=== PATIENT | female | born 1950 | race Caucasian/White ===

== ENCOUNTER 2020-08-31 22:15 | Inpatient (IN) ==
[2020-08-31] MEDS ORDERED: ONDANSETRON 4 MG/2 ML VIAL IV STA (23:20)
[2020-08-31] MEDS ORDERED: FUROSEMIDE 40 MG/4 ML VIAL IV STA (23:20)
[2020-08-31] MEDS ORDERED: methylPREDNISolone SOD SUC 125 MG/2 ML VIAL IV STA (23:20)
[2020-08-31 23:28] LABS: Basophils % 0.2 % (0.0-0.8); Hematocrit 37.6 VOL% (35.7-47.0); Hemoglobin 11.5 GM/DL (12.0-16.0); Immature Granulocytes % 0.6 %; Immature Granulocytes Absolute 0.06 #; Lymphocytes % 9.8 % (21.3-54.2); Mean Corpuscular HGB Conc 30.6 GM/DL (32-36); Mean Corpuscular Volume 95.9 FL (87-102); Mean Platelet Volume 10.3 FL (9.6-12.0); Monocytes % 8.5 % (1.7-12.7); Neutrophils % 80.9 % (38.7-73.9); Platelet Count 251 T/CUMM (130-400); Red Blood Count 3.92 MC/CUMM (3.8-5.5); Red Cell Distribution Width 15.9 % (9.3-17.3); White Blood Count 10.3 T/CUMM (4-12)
[2020-08-31] MEDS ORDERED: ALBUTEROL NEB SOLN 5 MG/ML 20 ML/BOTTLE CONT NEB SCH (23:30)
[2020-08-31 23:37] LABS: INR 1.1
[2020-08-31 23:47] LABS: Albumin 3.7 G/DL (3.4-5.0); Bilirubin,Total 0.5 MG/DL (0.2-1.0); Calcium 9.9 MG/DL (8.5-10.1); Osmolality,Calculated 312.7 MOS/KG (273-304); Potassium 4.2 MMOL/L (3.5-5.1); Total Protein 7.2 G/DL (6.4-8.2)
[2020-09-01] MEDS ORDERED: guaiFENesin/DM ER 600-30 MG TABLET PO PRN (01:23)
[2020-09-01] MEDS ORDERED: DEXTROSE 50% 25 GM/50 ML VIAL IV PRN ×2 (01:23→03:39)
[2020-09-01] MEDS ORDERED: MORPHINE 4 MG/1 ML VIAL IV PRN (01:23)
[2020-09-01] MEDS ORDERED: hydrALAZINE 20 MG/1 ML VIAL IV PRN (01:23)
[2020-09-01] MEDS ORDERED: NICOTINE 21 MG/24 HR PATCH TRANSDERM PRN (01:23)
[2020-09-01] MEDS ORDERED: CALCIUM CARBONATE CHEW 500 MG TABLET PO PRN (01:23)
[2020-09-01] MEDS ORDERED: ACETAMINOPHEN 325 MG TABLET PO PRN (01:23)
[2020-09-01] MEDS ORDERED: GLUCAGON 1 MG VIAL IM PRN (01:23)
[2020-09-01] MEDS ORDERED: ONDANSETRON 4 MG/2 ML VIAL IV PRN (01:23)
[2020-09-01 04:11] LABS: Risk Ratio 5.78; VLDL Cholesterol 41.8 MG/DL
[2020-09-01] MEDS: ALBUTEROL/IPRATROPIUM 3 ML NEB RESP TX SCH ×3 (07:18→19:25)
[2020-09-01] MEDS: methylPREDNISolone SOD SUC 40 MG/1 ML VIAL IV SCH ×2 (09:05→22:00)
[2020-09-01] MEDS: INSULIN REGULAR 100 UNIT/ML SUBCUT SCH ×4 (09:11→22:01)
[2020-09-01] MEDS ORDERED: SACUBITRIL/VALSARTAN 49-51 MG TABLET PO SCH (10:00)
[2020-09-01] MEDS: ASPIRIN EC 81 MG TABLET PO SCH (11:11)
[2020-09-01] MEDS: NEBIVOLOL 5 MG TABLET PO SCH (11:11)
[2020-09-01] MEDS ORDERED: FUROSEMIDE 40 MG/4 ML VIAL IV ONE (11:52)
[2020-09-01] MEDS: BENZONATATE 100 MG CAPSULE PO PRN (12:56)
[2020-09-01 14:24] LABS: Bacteria,Urine Occasional /HPF (Few); Bilirubin,Urine Negative (Negative); Blood, Urine Moderate mg/dL (Negative); Glucose,Urine (UA) Negative (Negative); Hyaline Casts,Urine 14 /LPF (0-3); Ketones,Urine Negative (Negative); Mucus,Urine Occasional /LPF (Occasional); Nitrite,Urine Negative (Negative); Protein,Urine Negative; RBC,Urine 30 /HPF (0-4); Squamous Epithelial Cell,Urine Occasional /HPF (0-10); Urine Appearance Slightly Hazy (Clear); Urine Color Straw (Yellow); Urine Specific Gravity 1.009 (1.001-1.035); Urine Urobilinogen < 2.0 EU/DL (0.2-1.0)
[2020-09-01] MEDS ORDERED: ATORVASTATIN 20 MG TABLET PO SCH (21:00)
[2020-09-01] MEDS: clonazePAM 0.5 MG TABLET PO SCH (21:57)
[2020-09-01] MEDS: PANTOPRAZOLE 40 MG TABLET PO SCH (21:57)
[2020-09-01] MEDS: IVABRADINE HCL 5 MG TABLET PO SCH (21:58)
[2020-09-01] MEDS: ATORVASTATIN 40 MG TABLET PO SCH (21:58)
[2020-09-02] MEDS: ALBUTEROL/IPRATROPIUM 3 ML NEB RESP TX SCH ×4 (03:37→19:53)
[2020-09-02 06:08] LABS: Basophils % 0.1 % (0.0-0.8); Hematocrit 35.8 VOL% (35.7-47.0); Hemoglobin 10.9 GM/DL (12.0-16.0); Immature Granulocytes % 1.2 %; Immature Granulocytes Absolute 0.14 #; Lymphocytes # 0.9 10*3/uL (1.4-4.0); Lymphocytes % 7.4 % (21.3-54.2); Mean Corpuscular HGB Conc 30.4 GM/DL (32-36); Mean Corpuscular Volume 96.5 FL (87-102); Monocytes % 4.7 % (1.7-12.7); Neutrophils % 86.6 % (38.7-73.9); Platelet Count 221 T/CUMM (130-400); Red Blood Count 3.71 MC/CUMM (3.8-5.5); Red Cell Distribution Width 15.9 % (9.3-17.3); White Blood Count 11.6 T/CUMM (4-12)
[2020-09-02 06:19] LABS: Calcium 9.7 MG/DL (8.5-10.1); Potassium 4.4 MMOL/L (3.5-5.1)
[2020-09-02] MEDS: INSULIN REGULAR 100 UNIT/ML SUBCUT SCH ×4 (07:54→22:23)
[2020-09-02] MEDS: CLOPIDOGREL 75 MG TABLET PO SCH (08:52)
[2020-09-02] MEDS: methylPREDNISolone SOD SUC 40 MG/1 ML VIAL IV SCH ×2 (08:52→22:14)
[2020-09-02] MEDS: clonazePAM 0.5 MG TABLET PO SCH ×2 (08:52→22:13)
[2020-09-02] MEDS: OMEGA 3 ACID ETHYL ESTERS 1 GM CAPSULE PO SCH (08:53)
[2020-09-02] MEDS: NEBIVOLOL 5 MG TABLET PO SCH (08:54)
[2020-09-02] MEDS: IVABRADINE HCL 5 MG TABLET PO SCH ×2 (08:54→22:13)
[2020-09-02] MEDS: PANTOPRAZOLE 40 MG TABLET PO SCH ×2 (08:54→22:13)
[2020-09-02] MEDS: allopurinoL 100 MG TABLET PO SCH (08:54)
[2020-09-02] MEDS: ASPIRIN EC 81 MG TABLET PO SCH (08:54)
[2020-09-02] MEDS ORDERED: FUROSEMIDE 40 MG/4 ML VIAL IV ONE (08:56)
[2020-09-02] MEDS: BENZONATATE 100 MG CAPSULE PO PRN (22:13)
[2020-09-02] MEDS: ATORVASTATIN 40 MG TABLET PO SCH (22:14)
[2020-09-03] MEDS: ALBUTEROL/IPRATROPIUM 3 ML NEB RESP TX SCH ×4 (01:55→20:00)
[2020-09-03 04:10] LABS: Basophils % 0.1 % (0.0-0.8); Hematocrit 34.8 VOL% (35.7-47.0); Immature Granulocytes % 1.7 %; Immature Granulocytes Absolute 0.15 #; Lymphocytes # 0.6 10*3/uL (1.4-4.0); Lymphocytes % 6.8 % (21.3-54.2); Mean Corpuscular HGB Conc 31.6 GM/DL (32-36); Mean Corpuscular Volume 96.1 FL (87-102); Mean Platelet Volume 10.7 FL (9.6-12.0); Neutrophils % 88.4 % (38.7-73.9); Platelet Count 199 T/CUMM (130-400); Red Blood Count 3.62 MC/CUMM (3.8-5.5); Red Cell Distribution Width 15.6 % (9.3-17.3); White Blood Count 8.9 T/CUMM (4-12)
[2020-09-03 04:32] LABS: Calcium 9.5 MG/DL (8.5-10.1); Potassium 4.7 MMOL/L (3.5-5.1)
[2020-09-03] MEDS: clonazePAM 0.5 MG TABLET PO SCH ×2 (11:14→21:28)
[2020-09-03] MEDS: PANTOPRAZOLE 40 MG TABLET PO SCH ×2 (11:15→21:29)
[2020-09-03] MEDS: NEBIVOLOL 5 MG TABLET PO SCH (11:15)
[2020-09-03] MEDS: FUROSEMIDE 40 MG TABLET PO SCH ×2 (11:15→17:01)
[2020-09-03] MEDS: OMEGA 3 ACID ETHYL ESTERS 1 GM CAPSULE PO SCH (11:15)
[2020-09-03] MEDS: CLOPIDOGREL 75 MG TABLET PO SCH (11:16)
[2020-09-03] MEDS: allopurinoL 100 MG TABLET PO SCH (11:16)
[2020-09-03] MEDS: ASPIRIN EC 81 MG TABLET PO SCH (11:17)
[2020-09-03] MEDS: methylPREDNISolone SOD SUC 40 MG/1 ML VIAL IV SCH ×2 (11:22→21:29)
[2020-09-03] MEDS: IVABRADINE HCL 5 MG TABLET PO SCH ×2 (11:23→21:30)
[2020-09-03] MEDS: INSULIN REGULAR 100 UNIT/ML SUBCUT SCH ×4 (11:56→21:29)
[2020-09-03] MEDS: ATORVASTATIN 40 MG TABLET PO SCH (21:29)
[2020-09-04] MEDS: ALBUTEROL/IPRATROPIUM 3 ML NEB RESP TX SCH ×4 (02:10→20:40)
[2020-09-04] MEDS: INSULIN REGULAR 100 UNIT/ML SUBCUT SCH ×4 (10:15→21:57)
[2020-09-04] MEDS: FUROSEMIDE 40 MG TABLET PO SCH ×2 (11:16→16:23)
[2020-09-04] MEDS: ASPIRIN EC 81 MG TABLET PO SCH (11:17)
[2020-09-04] MEDS: NEBIVOLOL 5 MG TABLET PO SCH (11:18)
[2020-09-04] MEDS: OMEGA 3 ACID ETHYL ESTERS 1 GM CAPSULE PO SCH (11:18)
[2020-09-04] MEDS: IVABRADINE HCL 5 MG TABLET PO SCH ×2 (11:19→21:57)
[2020-09-04] MEDS: clonazePAM 0.5 MG TABLET PO SCH ×2 (11:19→21:57)
[2020-09-04] MEDS: PANTOPRAZOLE 40 MG TABLET PO SCH ×2 (11:19→21:57)
[2020-09-04] MEDS: CLOPIDOGREL 75 MG TABLET PO SCH (11:23)
[2020-09-04] MEDS: allopurinoL 100 MG TABLET PO SCH (11:23)
[2020-09-04] MEDS: methylPREDNISolone SOD SUC 40 MG/1 ML VIAL IV SCH (11:28)
[2020-09-04] MEDS: ATORVASTATIN 40 MG TABLET PO SCH (21:57)
[2020-09-05] MEDS: ALBUTEROL/IPRATROPIUM 3 ML NEB RESP TX SCH ×4 (02:02→19:11)
[2020-09-05] MEDS: INSULIN REGULAR 100 UNIT/ML SUBCUT SCH ×3 (08:35→16:23)
[2020-09-05] MEDS: OMEGA 3 ACID ETHYL ESTERS 1 GM CAPSULE PO SCH (10:01)
[2020-09-05] MEDS: ASPIRIN EC 81 MG TABLET PO SCH (10:01)
[2020-09-05] MEDS: clonazePAM 0.5 MG TABLET PO SCH (10:01)
[2020-09-05] MEDS: PANTOPRAZOLE 40 MG TABLET PO SCH ×2 (10:02→21:14)
[2020-09-05] MEDS: CLOPIDOGREL 75 MG TABLET PO SCH (10:02)
[2020-09-05] MEDS: predniSONE 20 MG TABLET PO SCH (10:02)
[2020-09-05] MEDS: NEBIVOLOL 5 MG TABLET PO SCH (10:02)
[2020-09-05] MEDS: allopurinoL 100 MG TABLET PO SCH (10:02)
[2020-09-05] MEDS: FUROSEMIDE 40 MG TABLET PO SCH ×2 (10:03→16:33)
[2020-09-05] MEDS: IVABRADINE HCL 5 MG TABLET PO SCH ×2 (10:05→21:14)
[2020-09-05 12:04] LABS: Allen Test Negative
[2020-09-05 12:08] LABS: ABG Base Excess 7.2 MMOL/L (-2.5-2.5); ABG HCO3 34.3 MMOL/L (20-26); ABG Oxygen Saturation 97.4 % (95-100); ABG PCO2 61.2 MM HG (35-48); ABG PH 7.366 (7.35-7.45); ABG PO2 105.9 MM HG (80-95); ABG TCO2 36.1 MMOL/L (23-27)
[2020-09-05] MEDS: ATORVASTATIN 40 MG TABLET PO SCH (21:14)
[2020-09-06] MEDS: ALBUTEROL/IPRATROPIUM 3 ML NEB RESP TX SCH ×4 (01:00→18:58)
[2020-09-06] MEDS: INSULIN REGULAR 100 UNIT/ML SUBCUT SCH ×5 (02:41→21:34)
[2020-09-06 04:51] LABS: Basophils % 0.3 % (0.0-0.8); Eosinophils # 0.1 10*3/uL (0.0-0.87); Eosinophils % 0.8 % (0.00-10.9); Hematocrit 38.5 VOL% (35.7-47.0); Immature Granulocytes % 1.9 %; Immature Granulocytes Absolute 0.22 #; Lymphocytes # 1.9 10*3/uL (1.4-4.0); Lymphocytes % 16.4 % (21.3-54.2); Mean Corpuscular HGB Conc 31.2 GM/DL (32-36); Mean Corpuscular Volume 95.3 FL (87-102); Mean Platelet Volume 10.9 FL (9.6-12.0); Monocytes % 8.7 % (1.7-12.7); Neutrophils % 71.9 % (38.7-73.9); Platelet Count 210 T/CUMM (130-400); Red Blood Count 4.04 MC/CUMM (3.8-5.5); Red Cell Distribution Width 15.4 % (9.3-17.3); White Blood Count 11.8 T/CUMM (4-12)
[2020-09-06 05:07] LABS: Calcium 9.5 MG/DL (8.5-10.1); Osmolality,Calculated 324.5 MOS/KG (273-304); Potassium 3.8 MMOL/L (3.5-5.1)
[2020-09-06] MEDS: NEBIVOLOL 5 MG TABLET PO SCH (09:44)
[2020-09-06] MEDS: predniSONE 20 MG TABLET PO SCH (09:44)
[2020-09-06] MEDS: FUROSEMIDE 40 MG TABLET PO SCH ×2 (09:44→18:03)
[2020-09-06] MEDS: allopurinoL 100 MG TABLET PO SCH (09:44)
[2020-09-06] MEDS: CLOPIDOGREL 75 MG TABLET PO SCH (09:44)
[2020-09-06] MEDS: IVABRADINE HCL 5 MG TABLET PO SCH ×2 (09:45→21:34)
[2020-09-06] MEDS: OMEGA 3 ACID ETHYL ESTERS 1 GM CAPSULE PO SCH (09:45)
[2020-09-06] MEDS: ASPIRIN EC 81 MG TABLET PO SCH (09:45)
[2020-09-06] MEDS: PANTOPRAZOLE 40 MG TABLET PO SCH ×2 (09:45→21:35)
[2020-09-06] MEDS: ATORVASTATIN 40 MG TABLET PO SCH (21:34)
[2020-09-06] MEDS: BENZONATATE 100 MG CAPSULE PO PRN (21:35)
[2020-09-07] MEDS: ALBUTEROL/IPRATROPIUM 3 ML NEB RESP TX SCH ×4 (00:35→19:19)
[2020-09-07 05:17] LABS: Basophils % 0.3 % (0.0-0.8); Eosinophils # 0.1 10*3/uL (0.0-0.87); Eosinophils % 0.7 % (0.00-10.9); Hematocrit 39.5 VOL% (35.7-47.0); Hemoglobin 12.5 GM/DL (12.0-16.0); Immature Granulocytes % 1.4 %; Immature Granulocytes Absolute 0.15 #; Lymphocytes # 1.8 10*3/uL (1.4-4.0); Lymphocytes % 16.7 % (21.3-54.2); Mean Corpuscular HGB Conc 31.6 GM/DL (32-36); Mean Corpuscular Volume 95.2 FL (87-102); Mean Platelet Volume 10.3 FL (9.6-12.0); Monocytes % 10.8 % (1.7-12.7); Neutrophils % 70.1 % (38.7-73.9); Platelet Count 210 T/CUMM (130-400); Red Blood Count 4.15 MC/CUMM (3.8-5.5); Red Cell Distribution Width 15.6 % (9.3-17.3); White Blood Count 10.7 T/CUMM (4-12)
[2020-09-07 05:32] LABS: Calcium 9.7 MG/DL (8.5-10.1); Osmolality,Calculated 318.7 MOS/KG (273-304); Potassium 3.5 MMOL/L (3.5-5.1)
[2020-09-07] MEDS: NEBIVOLOL 5 MG TABLET PO SCH (09:25)
[2020-09-07] MEDS: IVABRADINE HCL 5 MG TABLET PO SCH ×2 (09:25→20:29)
[2020-09-07] MEDS: BENZONATATE 100 MG CAPSULE PO PRN (09:25)
[2020-09-07] MEDS: PANTOPRAZOLE 40 MG TABLET PO SCH ×2 (09:25→20:29)
[2020-09-07] MEDS: OMEGA 3 ACID ETHYL ESTERS 1 GM CAPSULE PO SCH (09:25)
[2020-09-07] MEDS: allopurinoL 100 MG TABLET PO SCH (09:25)
[2020-09-07] MEDS: FUROSEMIDE 40 MG TABLET PO SCH ×2 (09:25→15:53)
[2020-09-07] MEDS: predniSONE 20 MG TABLET PO SCH (09:26)
[2020-09-07] MEDS: CLOPIDOGREL 75 MG TABLET PO SCH (09:26)
[2020-09-07] MEDS: INSULIN REGULAR 100 UNIT/ML SUBCUT SCH ×5 (09:26→20:29)
[2020-09-07] MEDS: ASPIRIN EC 81 MG TABLET PO SCH (09:26)
[2020-09-07] MEDS: ATORVASTATIN 40 MG TABLET PO SCH (20:29)
[2020-09-07] MEDS ORDERED: INSULIN GLARGINE 100 UNIT/ML SUBCUT SCH (21:00)
[2020-09-08] MEDS: ALBUTEROL/IPRATROPIUM 3 ML NEB RESP TX SCH ×2 (00:31→08:05)
[2020-09-08 05:21] LABS: Calcium 9.9 MG/DL (8.5-10.1); Osmolality,Calculated 303.3 MOS/KG (273-304); Potassium 3.9 MMOL/L (3.5-5.1)
[2020-09-08] MEDS: INSULIN REGULAR 100 UNIT/ML SUBCUT SCH ×2 (09:42→12:58)
[2020-09-08] MEDS: FUROSEMIDE 40 MG TABLET PO SCH (09:45)
[2020-09-08] MEDS: OMEGA 3 ACID ETHYL ESTERS 1 GM CAPSULE PO SCH (09:45)
[2020-09-08] MEDS: PANTOPRAZOLE 40 MG TABLET PO SCH (09:45)
[2020-09-08] MEDS: predniSONE 20 MG TABLET PO SCH (09:45)
[2020-09-08] MEDS: CLOPIDOGREL 75 MG TABLET PO SCH (09:45)
[2020-09-08] MEDS: allopurinoL 100 MG TABLET PO SCH (09:45)
[2020-09-08] MEDS: NEBIVOLOL 5 MG TABLET PO SCH (09:45)
[2020-09-08] MEDS: ASPIRIN EC 81 MG TABLET PO SCH (09:45)
[2020-09-08] MEDS: IVABRADINE HCL 5 MG TABLET PO SCH (09:47)
[2020-09-08 13:00] VITALS: BP 126/59
== END 2020-09-08 13:02 | disposition home health service (06) | DRG 190 ==
LOC: N.ED 22:15 → N.EDINP 22:15 → N.TELEN 09-01 01:49 → SUATTDRO 09-03 08:55
PROVIDERS: ADMIT Internal Medicine Geriatric Medicine; ATTEND Internal Medicine

== ENCOUNTER 2020-11-12 02:27 | Inpatient (IN) ==
[2020-11-12 02:46] LABS: Basophils # 0.1 10*3/uL (0.0-0.2); Eosinophils # 0.4 10*3/uL (0.0-0.87); Eosinophils % 4.5 % (0.00-10.9); Hematocrit 29.6 VOL% (35.7-47.0); Hemoglobin 9.1 GM/DL (12.0-16.0); Immature Granulocytes % 0.4 %; Immature Granulocytes Absolute 0.03 #; Lymphocytes # 1.2 10*3/uL (1.4-4.0); Lymphocytes % 14.7 % (21.3-54.2); Mean Corpuscular HGB Conc 30.7 GM/DL (32-36); Mean Corpuscular Volume 91.9 FL (87-102); Mean Platelet Volume 10.7 FL (9.6-12.0); Monocytes % 7.6 % (1.7-12.7); Neutrophils % 71.8 % (38.7-73.9); Platelet Count 212 T/CUMM (130-400); Red Blood Count 3.22 MC/CUMM (3.8-5.5); Red Cell Distribution Width 15.3 % (9.3-17.3); White Blood Count 8.4 T/CUMM (4-12)
[2020-11-12] MEDS ORDERED: methylPREDNISolone SOD SUC 125 MG/2 ML VIAL IV STA (03:05)
[2020-11-12] MEDS ORDERED: ONDANSETRON 4 MG/2 ML VIAL IV STA (03:05)
[2020-11-12 03:11] LABS: Albumin 3.3 G/DL (3.4-5.0); Bilirubin,Total 1.1 MG/DL (0.20-1.00); Calcium 9.7 MG/DL (8.5-10.1); Osmolality,Calculated 302.2 MOS/KG (273-304); Potassium 3.9 MMOL/L (3.5-5.1); Total Protein 6.9 G/DL (6.4-8.2)
[2020-11-12 03:23] LABS: INR 1.1; PT Patient Result 12.6 SECS (10.5-12.0)
[2020-11-12] MEDS ORDERED: ALBUTEROL NEB SOLN 5 MG/ML 20 ML/BOTTLE CONT NEB SCH (03:30)
[2020-11-12] MEDS ORDERED: SODIUM CHLORIDE 0.9% 500 ML IV STA (04:02)
[2020-11-12] MEDS ORDERED: MORPHINE 2 MG/1 ML SYRINGE IV PRN (04:40)
[2020-11-12] MEDS ORDERED: DEXTROSE 50% 25 GM/50 ML VIAL IV PRN ×2 (04:40)
[2020-11-12] MEDS ORDERED: GLUCAGON 1 MG VIAL IM PRN (04:40)
[2020-11-12 05:17] LABS: Bacteria,Urine Occasional /HPF (Few); Bilirubin,Urine Negative (Negative); Blood, Urine Negative (Negative); Glucose,Urine (UA) Negative (Negative); Hyaline Casts,Urine 1 /LPF (0-3); Ketones,Urine Negative (Negative); Mucus,Urine Occasional /LPF (Occasional); Nitrite,Urine Negative (Negative); Protein,Urine Negative; RBC,Urine 1 /HPF (0-4); Squamous Epithelial Cell,Urine Occasional /HPF (0-10); Urine Appearance CLEAR (Clear); Urine Color Yellow (Yellow); Urine Urobilinogen < 2.0 EU/DL (0.2-1.0)
[2020-11-12 08:20] LABS: Folate 11.29 NG/ML (5.38-24.0)
[2020-11-12 08:53] LABS: % Iron Saturation 9.6 % (18-50); Ferritin 132.8 ng/mL (8-252)
[2020-11-12] MEDS ORDERED: SACUBITRIL/VALSARTAN 49-51 MG TABLET PO SCH (09:00)
[2020-11-12] MEDS: CLOPIDOGREL 75 MG TABLET PO SCH (09:37)
[2020-11-12] MEDS: ENOXAPARIN 30 MG/0.3 ML SYRINGE SUBCUT SCH (09:38)
[2020-11-12] MEDS: INSULIN LISPRO 100 UNIT/ML SUBCUT SCH ×4 (09:38→22:21)
[2020-11-12] MEDS: methylPREDNISolone SOD SUC 40 MG/1 ML VIAL IV SCH ×2 (09:38→17:44)
[2020-11-12] MEDS: ZINC OXIDE PASTE 113 GM TUBE TOP SCH ×2 (14:50→22:21)
[2020-11-12] MEDS: COLLAGENASE OINT 30 GM TUBE TOP SCH (14:50)
[2020-11-12] MEDS: SODIUM CHLORIDE 0.9% 1,000 ML IV SCH (17:49)
[2020-11-12] MEDS: INSULIN GLARGINE 100 UNIT/ML SUBCUT SCH (22:20)
[2020-11-12] MEDS: ATORVASTATIN 40 MG TABLET PO SCH (22:20)
[2020-11-13] MEDS: methylPREDNISolone SOD SUC 40 MG/1 ML VIAL IV SCH ×3 (00:02→16:59)
[2020-11-13 06:30] LABS: Basophils % 0.1 % (0.0-0.8); Hematocrit 28.7 VOL% (35.7-47.0); Hemoglobin 9.4 GM/DL (12.0-16.0); Immature Granulocytes % 0.6 %; Immature Granulocytes Absolute 0.09 #; Lymphocytes # 0.4 10*3/uL (1.4-4.0); Lymphocytes % 2.9 % (21.3-54.2); Mean Corpuscular HGB Conc 32.8 GM/DL (32-36); Mean Corpuscular Volume 89.4 FL (87-102); Mean Platelet Volume 10.9 FL (9.6-12.0); Monocytes % 1.6 % (1.7-12.7); Neutrophils % 94.8 % (38.7-73.9); Platelet Count 230 T/CUMM (130-400); Red Blood Count 3.21 MC/CUMM (3.8-5.5); Red Cell Distribution Width 15.1 % (9.3-17.3); White Blood Count 14.3 T/CUMM (4-12)
[2020-11-13 06:52] LABS: Calcium 9.9 MG/DL (8.5-10.1); Osmolality,Calculated 298.6 MOS/KG (273-304); Risk Ratio 2.66; Thyroid Stimulating Hormone 0.297 uIU/ml (0.358-3.74); VLDL Cholesterol 15.4 MG/DL
[2020-11-13 07:01] LABS: Band Neutrophils 1 % (0-10); Lymphocytes 2 % (20-55); Platelet Estimate Normal; Segmented Neutrophils 96 % (50-85); Total Cells Counted 100
[2020-11-13] MEDS: CLOPIDOGREL 75 MG TABLET PO SCH (09:14)
[2020-11-13] MEDS: INSULIN LISPRO 100 UNIT/ML SUBCUT SCH ×4 (09:14→22:59)
[2020-11-13] MEDS: ENOXAPARIN 30 MG/0.3 ML SYRINGE SUBCUT SCH (09:14)
[2020-11-13] MEDS: CLINDAMYCIN 300 MG CAPSULE PO SCH ×4 (09:14→22:58)
[2020-11-13] MEDS: COLLAGENASE OINT 30 GM TUBE TOP SCH (09:14)
[2020-11-13] MEDS: ZINC OXIDE PASTE 113 GM TUBE TOP SCH ×2 (09:14→22:59)
[2020-11-13] MEDS: SODIUM CHLORIDE 0.9% 1,000 ML IV SCH (10:32)
[2020-11-13] MEDS ORDERED: AMOXICILLIN/CLAV 500 MG TABLET PO SCH (13:30)
[2020-11-13] MEDS: ONDANSETRON 4 MG/2 ML VIAL IV PRN ×2 (15:38→22:59)
[2020-11-13] MEDS: ACETAMINOPHEN 325 MG TABLET PO PRN (17:03)
[2020-11-13] MEDS: ALBUTEROL/IPRATROPIUM 3 ML NEB RESP TX PRN (19:55)
[2020-11-13] MEDS: ATORVASTATIN 40 MG TABLET PO SCH (22:58)
[2020-11-13] MEDS: INSULIN GLARGINE 100 UNIT/ML SUBCUT SCH (22:59)
[2020-11-14] MEDS: methylPREDNISolone SOD SUC 40 MG/1 ML VIAL IV SCH ×3 (01:21→22:18)
[2020-11-14 05:04] LABS: Basophils % 0.2 % (0.0-0.8); Hematocrit 30.7 VOL% (35.7-47.0); Hemoglobin 9.8 GM/DL (12.0-16.0); Immature Granulocytes % 0.7 %; Immature Granulocytes Absolute 0.09 #; Lymphocytes # 0.4 10*3/uL (1.4-4.0); Lymphocytes % 3.3 % (21.3-54.2); Mean Corpuscular HGB Conc 31.9 GM/DL (32-36); Mean Platelet Volume 11.2 FL (9.6-12.0); Neutrophils % 93.8 % (38.7-73.9); Platelet Count 258 T/CUMM (130-400); Red Blood Count 3.41 MC/CUMM (3.8-5.5); Red Cell Distribution Width 15.1 % (9.3-17.3); White Blood Count 13.3 T/CUMM (4-12)
[2020-11-14 05:30] LABS: Calcium 9.8 MG/DL (8.5-10.1); Osmolality,Calculated 302.8 MOS/KG (273-304); Potassium 4.2 MMOL/L (3.5-5.1)
[2020-11-14 05:41] LABS: Hypochromasia Slight; Platelet Estimate Normal; Segmented Neutrophils 98 % (50-85); Total Cells Counted 100
[2020-11-14] MEDS: CLINDAMYCIN 300 MG CAPSULE PO SCH ×3 (07:21→22:17)
[2020-11-14] MEDS: ALBUTEROL/IPRATROPIUM 3 ML NEB RESP TX PRN (08:50)
[2020-11-14] MEDS: ENOXAPARIN 30 MG/0.3 ML SYRINGE SUBCUT SCH (09:10)
[2020-11-14] MEDS: ZINC OXIDE PASTE 113 GM TUBE TOP SCH ×2 (09:11→22:18)
[2020-11-14] MEDS: COLLAGENASE OINT 30 GM TUBE TOP SCH (09:11)
[2020-11-14] MEDS: CLOPIDOGREL 75 MG TABLET PO SCH (09:11)
[2020-11-14] MEDS: INSULIN LISPRO 100 UNIT/ML SUBCUT SCH ×4 (09:11→22:18)
[2020-11-14] MEDS: ONDANSETRON 4 MG/2 ML VIAL IV PRN (11:55)
[2020-11-14] MEDS: ALBUTEROL/IPRATROPIUM 3 ML NEB RESP TX SCH ×2 (14:45→20:40)
[2020-11-14] MEDS: ATORVASTATIN 40 MG TABLET PO SCH (22:18)
[2020-11-14] MEDS: INSULIN GLARGINE 100 UNIT/ML SUBCUT SCH (22:18)
[2020-11-15] MEDS: ALBUTEROL/IPRATROPIUM 3 ML NEB RESP TX SCH ×4 (01:10→19:40)
[2020-11-15 04:11] LABS: Basophils % 0.1 % (0.0-0.8); Hematocrit 28.8 VOL% (35.7-47.0); Hemoglobin 9.1 GM/DL (12.0-16.0); Immature Granulocytes Absolute 0.12 #; Lymphocytes # 0.9 10*3/uL (1.4-4.0); Lymphocytes % 6.9 % (21.3-54.2); Mean Corpuscular HGB Conc 31.6 GM/DL (32-36); Mean Platelet Volume 10.8 FL (9.6-12.0); Monocytes % 8.7 % (1.7-12.7); Neutrophils % 83.3 % (38.7-73.9); Platelet Count 268 T/CUMM (130-400); Red Cell Distribution Width 15.2 % (9.3-17.3); White Blood Count 12.3 T/CUMM (4-12)
[2020-11-15 04:44] LABS: Calcium 9.5 MG/DL (8.5-10.1); Osmolality,Calculated 302.8 MOS/KG (273-304); Potassium 3.8 MMOL/L (3.5-5.1)
[2020-11-15] MEDS: CLINDAMYCIN 300 MG CAPSULE PO SCH ×3 (06:47→21:26)
[2020-11-15] MEDS: ACETAMINOPHEN 325 MG TABLET PO PRN ×2 (06:47→14:48)
[2020-11-15] MEDS: ENOXAPARIN 30 MG/0.3 ML SYRINGE SUBCUT SCH (09:19)
[2020-11-15] MEDS: SEVELAMER CARBONATE 800 MG TABLET PO SCH ×3 (09:20→17:00)
[2020-11-15] MEDS: CLOPIDOGREL 75 MG TABLET PO SCH (09:20)
[2020-11-15] MEDS: INSULIN LISPRO 100 UNIT/ML SUBCUT SCH ×6 (09:20→20:46)
[2020-11-15] MEDS ORDERED: FUROSEMIDE 20 MG/2 ML VIAL IV ONE ×2 (13:05→15:40)
[2020-11-15] MEDS: methylPREDNISolone SOD SUC 40 MG/1 ML VIAL IV SCH ×2 (13:54→20:45)
[2020-11-15] MEDS: ZINC OXIDE PASTE 113 GM TUBE TOP SCH ×2 (15:15→20:45)
[2020-11-15] MEDS: COLLAGENASE OINT 30 GM TUBE TOP SCH (15:33)
[2020-11-15 16:02] LABS: Calcium 9.1 MG/DL (8.5-10.1); Osmolality,Calculated 303.8 MOS/KG (273-304); Potassium 4.3 MMOL/L (3.5-5.1)
[2020-11-15] MEDS: ONDANSETRON 4 MG/2 ML VIAL IV PRN (18:50)
[2020-11-15] MEDS: ATORVASTATIN 40 MG TABLET PO SCH (20:45)
[2020-11-15] MEDS: INSULIN GLARGINE 100 UNIT/ML SUBCUT SCH (20:46)
[2020-11-16] MEDS: ALBUTEROL/IPRATROPIUM 3 ML NEB RESP TX SCH ×4 (01:15→19:20)
[2020-11-16] MEDS: CLINDAMYCIN 300 MG CAPSULE PO SCH ×3 (05:52→22:38)
[2020-11-16] MEDS: ACETAMINOPHEN 325 MG TABLET PO PRN ×2 (05:53→17:15)
[2020-11-16 08:09] LABS: Total Protein (Chem) 6.7 G/DL (6.4-8.3)
[2020-11-16] MEDS: INSULIN LISPRO 100 UNIT/ML SUBCUT SCH ×7 (09:00→20:45)
[2020-11-16] MEDS: CLOPIDOGREL 75 MG TABLET PO SCH (09:01)
[2020-11-16] MEDS: ENOXAPARIN 30 MG/0.3 ML SYRINGE SUBCUT SCH (09:01)
[2020-11-16] MEDS: SEVELAMER CARBONATE 800 MG TABLET PO SCH ×3 (09:01→17:57)
[2020-11-16 09:06] LABS: Albumin (SPE) 4.5 G/DL (3.2-5.3); Albumin (SPE) Rel % 67.8 %; Alpha 1 (SPE) 0.2 G/DL (0.1-0.4); Alpha 1 (SPE) Rel % 3.1 %; Alpha 2 (SPE) 0.7 G/DL (0.4-1.0); Alpha 2 (SPE) Rel % 10.8 %; Beta (SPE) 0.7 G/DL (0.5-1.1); Beta (SPE) Rel % 9.9 %; Gamma (SPE) 0.6 G/DL (0.7-1.7); Gamma (SPE) Rel % 8.4 %
[2020-11-16 09:22] LABS: Calcium 9.3 MG/DL (8.5-10.1); Osmolality,Calculated 304.6 MOS/KG (273-304); Potassium 4.3 MMOL/L (3.5-5.1)
[2020-11-16] MEDS: FUROSEMIDE 40 MG/4 ML VIAL IV SCH (10:55)
[2020-11-16] MEDS: COLLAGENASE OINT 30 GM TUBE TOP SCH (10:56)
[2020-11-16] MEDS: methylPREDNISolone SOD SUC 40 MG/1 ML VIAL IV SCH (10:58)
[2020-11-16] MEDS: ONDANSETRON 4 MG/2 ML VIAL IV PRN (11:02)
[2020-11-16 11:53] LABS: Basophils % 0.1 % (0.0-0.8); Eosinophils % 0.1 % (0.00-10.9); Hematocrit 29.7 VOL% (35.7-47.0); Hemoglobin 9.5 GM/DL (12.0-16.0); Immature Granulocytes % 0.9 %; Immature Granulocytes Absolute 0.11 #; Lymphocytes # 0.7 10*3/uL (1.4-4.0); Lymphocytes % 5.9 % (21.3-54.2); Mean Corpuscular Volume 89.7 FL (87-102); Mean Platelet Volume 10.8 FL (9.6-12.0); Monocytes % 7.4 % (1.7-12.7); Neutrophils % 85.6 % (38.7-73.9); Platelet Count 265 T/CUMM (130-400); Red Blood Count 3.31 MC/CUMM (3.8-5.5); White Blood Count 12.3 T/CUMM (4-12)
[2020-11-16] MEDS: ZINC OXIDE PASTE 113 GM TUBE TOP SCH ×2 (13:06→20:45)
[2020-11-16] MEDS: ATORVASTATIN 40 MG TABLET PO SCH (20:44)
[2020-11-16] MEDS: INSULIN GLARGINE 100 UNIT/ML SUBCUT SCH (20:45)
[2020-11-17] MEDS: ALBUTEROL/IPRATROPIUM 3 ML NEB RESP TX SCH ×2 (00:12→07:04)
[2020-11-17] MEDS: CLINDAMYCIN 300 MG CAPSULE PO SCH (05:45)
[2020-11-17 07:51] LABS: Calcium 9.3 MG/DL (8.5-10.1); Osmolality,Calculated 304.4 MOS/KG (273-304); Potassium 4.7 MMOL/L (3.5-5.1)
[2020-11-17] MEDS ORDERED: predniSONE 20 MG TABLET PO SCH (09:00)
[2020-11-17 09:02] LABS: Basophils % 0.1 % (0.0-0.8); Eosinophils # 0.1 10*3/uL (0.0-0.87); Eosinophils % 0.8 % (0.00-10.9); Hematocrit 29.9 VOL% (35.7-47.0); Hemoglobin 9.7 GM/DL (12.0-16.0); Immature Granulocytes Absolute 0.14 #; Lymphocytes # 1.3 10*3/uL (1.4-4.0); Lymphocytes % 8.7 % (21.3-54.2); Mean Corpuscular HGB Conc 32.4 GM/DL (32-36); Mean Platelet Volume 11.2 FL (9.6-12.0); Neutrophils % 79.4 % (38.7-73.9); Platelet Count 311 T/CUMM (130-400); Red Blood Count 3.36 MC/CUMM (3.8-5.5); Red Cell Distribution Width 15.3 % (9.3-17.3); White Blood Count 14.4 T/CUMM (4-12)
[2020-11-17] MEDS: INSULIN LISPRO 100 UNIT/ML SUBCUT SCH ×2 (11:11→11:12)
[2020-11-17] MEDS: ENOXAPARIN 30 MG/0.3 ML SYRINGE SUBCUT SCH (11:12)
[2020-11-17] MEDS: SEVELAMER CARBONATE 800 MG TABLET PO SCH ×2 (11:12→11:13)
[2020-11-17] MEDS: CLOPIDOGREL 75 MG TABLET PO SCH (11:13)
[2020-11-17] MEDS: COLLAGENASE OINT 30 GM TUBE TOP SCH (11:14)
[2020-11-17] MEDS: ZINC OXIDE PASTE 113 GM TUBE TOP SCH (11:14)
[2020-11-17] MEDS: FUROSEMIDE 40 MG/4 ML VIAL IV SCH (11:16)
[2020-11-17] MEDS ORDERED: LACTULOSE 20 GM/30 ML UDCUP PO PRN (11:21)
[2020-11-17] MEDS ORDERED: FUROSEMIDE 40 MG TABLET PO SCH (11:30)
[2020-11-17 15:35] VITALS: BP 114/75
== END 2020-11-17 16:26 | disposition home health service (06) | DRG 190 ==
LOC: N.ED 02:27 → N.EDINP 04:40 → SUATTDRO 04:40 → N.TELES 07:05
PROVIDERS: ADMIT Internal Medicine; ATTEND Internal Medicine